=== PATIENT | male | born 1995 | race Caucasian/White ===

== ENCOUNTER → 2018-02-27 | Outpatient (CLI) | payer SELFPAY ==
--- NOTE | 2018-02-27 12:33 | RADIOLOGY IMAGING REPORT ---
FACILITY: [facility] PATIENT NAME: Danie Castañeda : 1995 MR: [id number] V: [id number] EXAM DATE: ORDERING PHYSICIAN: JAIR ARAGON TECHNOLOGIST: Location: [facility] [place] Patient: Danie Castañeda : 1995 Visit/Account:[id number] Date of Sevice: 02/27/[address] scan without contrast COMPARISONS: November 21, 2011 ADDITIONAL PERTINENT HISTORY: Head trauma 5 weeks ago with continued headaches. TECHNIQUE: Multiple axial images were obtained from the skull base to the vertex without IV contrast . One of the following dose optimization techniques was utilized in the performance of this exam: Aut omated exposure control; adjustment of the mA and/or kV according to the patient's size; or use of an iterative reconstruction technique. Specific details can be referenced in the facility's radiology CT exam operational policy. FINDINGS: Midline shift: Negative Ventricles: Negative Brain parenchyma: Negative Extra-axial spaces: Negative Intracranial vasculature: Negative Osseous structures: Negative Paranasal sinuses and mastoid air cells: Negative Surrounding soft tissues and orbits: Negative IMPRESSION: Normal head CT scan without contrast. Report Dictated By: Nilson Jimenes MD at 02/27/2018 12:26 PM Report E-Signed By: Nilson Jimenes MD at 02/27/2018 12:28 PM [id number]
== END ==
LOC: CT 11:59
PROVIDERS: ATTEND Family Medicine
DX: S09.90XA Unspecified injury of head, initial encounter (principal)
CPT/HCPCS: 70450

== ENCOUNTER → 2018-02-27 | Outpatient (REF) | payer SELFPAY ==
[2018-02-27 12:06] LABS: PLATELET COUNT, AUTOMATED 235 K/uL (150-450)
== END ==
PROVIDERS: ATTEND Family Medicine
DX: S09.90XA Unspecified injury of head, initial encounter (principal); X58.XXXA Exposure to other specified factors, initial encounter
CPT/HCPCS: 82040; 82247; 82310; 82374; 82435; 82565; 82947; 83036; 84075; 84132; 84155; 84295; 84450; 84460; 84520; 85025